=== PATIENT | female | born 1965 | race Caucasian/White ===

== ENCOUNTER 2024-04-04 08:34 | Outpatient (CLI) | payer MEDICAID, MEDICARE ==
[~2024-04-04 08:34] MED LIST: ATEN25TA PO; EST1T PO; HYDR-4353 PO; HYDR25TA4 PO
[2024-04-04 09:33] VITALS: PULSE 64; RESP 16; O2SAT 93
== END 2024-04-04 23:59 | disposition home or self-care (01) ==
LOC: RT 08:34
PROVIDERS: ATTEND Student in an Organized Health Care Education/Training Program
DX: J44.9 Chronic obstructive pulmonary disease, unspecified (principal)
CPT/HCPCS: 94010; 94760; A6258

== ENCOUNTER 2024-12-05 08:30 | Outpatient (CLI) | payer MEDICARE, MEDICAID ==
--- NOTE | 2024-12-05 10:34 | RADIOLOGY REPORT ---
PROCEDURE: MR MRI LUMBAR SPINE INDICATION: RADICULOPATHY, LUMBAR REGION Exam Date: 12/05/2024 08:43 AM COMPARISON: None TECHNIQUE: MRI lumbar spine without intravenous contrast. FINDINGS: Grade 1 anterolisthesis of L5 on S1 There are degenerative endplate changes including modic endplat e changes with anterior and lateral osteophytes throughout the lumbar spine. The visualized distal sp inal cord and conus medullaris are within normal limits. The conus medullaris appears to terminate w ithin normal limits. The visualized retroperitoneal and paraspinal soft tissues are unremarkable. The following axial levels are detailed below: T12-L1: There is a mild circumferential disc bulge. No significant central canal or neuroforaminal s tenosis. L1-L2: There is a moderate circumferential disc bulge complicated by facet arthropathy associated w ith mild to moderate bilateral neuroforaminal stenosis. No significant central canal stenosis. L2-L3: There is a moderate circumferential disc bulge complicated by facet arthropathy associated w ith mild to moderate bilateral neuroforaminal stenosis. No significant central canal stenosis. L3-L4: There is a severe circumferential disc bulge complicated by facet arthropathy narrowing the central canal to 8 mm with associated moderate to severe left neuroforaminal stenosis. L4-L5: There is a severe circumferential disc bulge complicated by facet arthropathy narrowing the central canal to 5 mm with associated moderate bilateral neuroforaminal stenosis. L5-S1: There is a moderate circumferential disc bulge complicated by facet arthropathy associated wi th mild to moderate bilateral neuroforaminal stenosis. Central canal measures 8 mm. IMPRESSION: 1. Multilevel degenerative disease. Grade 1 anterolisthesis of L5 on S1. Severe central canal stenos is L4-Moderate central canal stenosis L3-4 and L5-S1. Neural foraminal stenosis as above. HS:Y
== END 2024-12-05 23:59 | disposition home or self-care (01) ==
LOC: MRI02 08:30
PROVIDERS: ATTEND Family Medicine
DX: M51.17 Intervertebral disc disorders with radiculopathy, lumbosacral region (principal); M47.26 Other spondylosis with radiculopathy, lumbar region; M48.07 Spinal stenosis, lumbosacral region; M47.27 Other spondylosis with radiculopathy, lumbosacral region
CPT/HCPCS: 72148